=== PATIENT | female | born 1990 | race Caucasian/White ===

== ENCOUNTER 2018-12-16 15:30 | Outpatient (REF) | payer MEDICAID, SELFPAY ==
--- NOTE | 2018-12-16 15:15 | PAPFT_PTH ---
PATIENT: Chloe Quinones LOC: [facility] U#:[id number] AGE/SX: 28/F ROOM: RE12/16/[address]: Violette Garcia : 1990 BED: DIS: 12/16/2018 SPEC #: [id number] RECD: 12/16/18 18:34 STATUS: DANNIELLE REQ #: [id number] MARSHAL: 12/16/18 15:[address]: Violette Garcia DEPT: [facility] Cytology RECD BY: Jackie Dodson ENTERED: 12/16/18 18:34 SP TYPE: PAPFT OTHR DR: Jyotsna Montoya Tissues: 1 - CX/ENDOCX FOR PAP SMEARS Procedures: PAP THIN PREP/UVM Screening HPV DNA PROBE Comments: [id number]
== END 2018-12-16 15:50 ==
LOC: NCHCN 15:30
PROVIDERS: PCP Nurse Practitioner Family; Visit Provider Nurse Practitioner Family
DX: Z12.4 Encounter for screening for malignant neoplasm of cervix (principal); Z11.51 Encounter for screening for human papillomavirus (HPV); Z01.419 Encounter for gynecological examination (general) (routine) without abnormal findings
CPT/HCPCS: 88142; 87624

== ENCOUNTER 2019-03-25 13:13 | Outpatient (REF) | payer MEDICAID, SELFPAY | END 2019-03-25 13:33 | LOC: NCHCN 13:13 | PROVIDERS: PCP Nurse Practitioner Family; Visit Provider Nurse Practitioner Family | DX: J02.9 Acute pharyngitis, unspecified (principal) | CPT/HCPCS: 87081 ==

== ENCOUNTER 2020-02-09 19:01 | Outpatient (REF) | payer MEDICAID, SELFPAY ==
[2020-02-09 18:56] LABS: Abs Immature Grans 0.06 10^3/uL (0.0-0.06); Absolute Basophil Count 0.06 10^3/uL (0.0-0.2); Absolute Eosinophil Count 0.11 10^3/uL (0.0-0.7); Basophils % 0.5; Eosinophils % 0.9; HCT 39.4 % (36.0-46.0); HGB 12.8 g/dL (11.2-15.7); Immature Grans % 0.5; MCH 28.6 pg (27.0-33.0); MCHC 32.5 % (32.0-36.0); MCV 87.9 fL (80-95); MPV 10.1 fL (8.0-11.0); Monocytes % 7.9; Neutrophils % 64.2; Nucleated RBC 0 %; Platelet Count 336 10^3/uL (130-400); RBC 4.48 10^6/uL (3.93-5.22); RDW 13.3 % (11.7-14.6); RDW-SD 42.6 fL; WBC 12.67 10^3/uL (4.4-10.8)
[2020-02-09 19:02] LABS: Absolute Lymphocyte Count 3.29 10^3/uL (1.2-3.4); Absolute Neutrophil Count 8.13 10^3/uL (1.2-6.7)
[2020-02-09 19:25] LABS: TSH (W/Ref FT4) 1.01 uIU/mL (0.36-3.74)
[2020-02-13 10:12] LABS: COVID-19 RT-PCR Result NEGATIVE (Negative)
== END 2020-02-09 19:21 ==
LOC: NCHCN 19:01
PROVIDERS: PCP Nurse Practitioner Family; Visit Provider Nurse Practitioner Family
DX: J06.9 Acute upper respiratory infection, unspecified (principal); J02.9 Acute pharyngitis, unspecified
CPT/HCPCS: U0003; 84443; 85025

== ENCOUNTER 2020-05-17 16:05 | Emergency (ER) | payer MEDICAID, SELFPAY ==
[2020-05-17 16:27] VITALS: BP 113/68; PULSE 78; RESP 16; TEMP 36.5; O2SAT 98
--- NOTE | 2020-05-17 16:33 | W.ED.GENAD ---
Discharge Plan Disposition Patient Disposition: HOME Condition: Stable Discharge Details Clinical Impression: Thyroglossal duct cyst Primary Care Provider: Jyotsna Montoya ED Provider: Jarret Cazares Home Meds and New Rx's Prescriptions: New amoxicillin-pot clavulanate [Augmentin] 875-125 mg tablet 1 tab PO BID Qty: 20 RF: 0 Continued sertraline 100 mg tablet 100 mg PO DAILY RF: 0 Discharge Instructions Instructions: Thyroglossal Duct Cyst (ED) Additional Instructions: Augmentin as directed. [id number] Tylenol and/or Motrin as directed for discomfort. Cool and/or warm compresses every 2 hours for 20 minutes. Please watch for new or worsening symptoms and return to the ER for any concerns. I personally spoke with ENT, Dr. Magallon, at [facility]. He recommends getting you a referral to the ENT clinic, they should be contacting you in the next couple of days to help expedite outpatient ENT follow-up care. Discharge Data Discharge Date/Time-TO BE ENTERED AT DEPARTURE: 05/17/20 21:04 Medical Decision Making 29-year-old female with intermittent anterior neck pain-swelling that she describes as both anterior and external over the past year or so. Clinically she certainly has exterior swelling and a small amount of firmness but no pointing abscess, erythema, warmth, signs of Aj's angina. Her pharynx and mouth are unremarkable. No discomfort in the floor of her mouth. Difficult to say if there is nothing abnormal with her thyroid given the anterior neck swelling making the examination more difficult. Will obtain CBC, CMP, Monospot, rapid strep, more importantly CT of the neck with contrast. Laboratory values are unremarkable for obvious emergent process. Patient remains in no acute distress, using her cell phone without difficulty. Awaiting CT imaging of the neck. CT imaging reveals a likely thyroglossal duct cyst, possibly infected. Will discuss the case with ENT. Was able to push the images to [facility] and discussed the case with Dr. Magallon. He feels as though Augmentin therapy for the next 10 days is reasonable, [id number] Tylenol and/or Motrin, and referral to ENT clinic at [facility]. Patient given first dose of Augmentin here. Placed on the care management list to help expedite outpatient referral. Discussed findings with patient, my discussion with ENT at [facility], and disposition. She has no additional questions or concerns and is comfortable with this plan. Medical Records Medical records reviewed: Yes I reviewed the patient's medical records. Imaging Data Radiologic Study: Attestation: I personally reviewed and interpreted this imaging study as follows: Imaging: CT Scan Radiologist's impression: CT imaging of the neck read by radiology as there is a thick walled rim-enhancing septated fluid cystic structure measuring 1.8 x 1.3 x 1.7 L in the midline just below the left of the hyoid bone within the strap muscles. Does not exert mass-effect on the airway. No associated adenopathy. This probably most likely represents an infected thyroglossal duct cyst. Lab Data Lab results reviewed: Yes I reviewed the patient's lab results. Lab results narrative: 05/17/20 17:30 Pharynx Streptococcus Screen (KANG) - Pending Laboratory Tests Range/Units 05/17/20 05/17/20 05/17/20 17:00 17:00 17:00 WBC (4.4-10.8) 10^3/uL 10.83 H RBC (3.93-5.22) 10^6/uL 4.85 Hgb (11.2-15.7) g/dL 13.8 Hct (36.0-46.0) % 41.4 MCV (80-95) fL 85.4 MCH (27.0-33.0) pg 28.5 MCHC (32.0-36.0) % 33.3 RDW (11.7-14.6) % 12.6 Plt Count (130-400) 10^3/uL 369 MPV (8.0-11.0) fL 9.9 Immature Gran % 0.5 Neutrophils % 73.1 Lymphocytes % 17.5 Monocytes % 7.6 Eosinophils % 0.7 Basophils % 0.6 Nucleated RBC % % 0 Absolute Neutrophils (1.2-6.7) 10^3/uL 7.92 H Absolute Lymphocytes (1.2-3.4) 10^3/uL 1.90 Absolute Monocytes (0.1-0.8) 10^3/uL 0.82 H Absolute Eosinophils (0.0-0.7) 10^3/uL 0.08 Absolute Basophils (0.0-0.2) 10^3/uL 0.06 Sodium (136-145) mmol/L 138 Potassium (3.5-5.1) mmol/L 4.0 Chloride (98-107) mmol/L 103 Carbon Dioxide (21.0-32.0) mmol/L 24.4 Anion Gap (3-11) mmol/L 10.6 BUN (7-18) mg/dL 18 Creatinine (0.55-1.02) mg/dL 0.6 Estimated GFR/1.73 m2 (mL/min/1.73m2) >= 60.00 Glucose (74-106) mg/dL 90 Calcium (8.5-10.1) mg/dL 9.4 Total Bilirubin (0.2-1.0) mg/dL 0.3 AST (15-37) U/L 39 H ALT (14-59) U/L 79 H Alkaline Phosphatase (46-116) U/L 83 Total Protein (6.4-8.2) g/dL 8.5 H Albumin (3.4-5.0) g/dL 3.9 TSH (0.36-3.74) uIU/mL 1.63 Monoscreen (Negative) Negative HPI General Mode of arrival: ambulatory. Date/Time Provider Initiated Documentation: 05/17/20 16:30. Limitations to Documentation: no limitations. Information obtained by: patient. HPI Narrative: This is a 29-year-old female, x6 months, not breast-feeding, presenting to the ER today for anterior neck swelling over the past 3 days. Patient states that she has had this happen intermittently for at least 1 year. She states that the area is tight, swollen, and she feels as though she has both anterior and exterior moderate pain, worse with palpation or swallowing. She denies difficulty swallowing, speaking or breathing. Has taken pnee-kwu-qmecsgy medications with minimal relief. In the past she was seen by her primary care provider and [employer]; however, she denies any distinctive diagnosis ever being made. She denies any headache, fever, chest pain, shortness of breath, wheezing abdominal pain, nausea, vomiting, skin rash. She reports mild nasal drainage. Related Data Home Medications Medication Instructions Recorded Confirmed amoxicillin-pot clavulanate 1 tab PO BID #20 tab 05/17/20 [Augmentin] sertraline 100 mg PO DAILY 05/17/20 05/17/20 Previous Rx's Medication Instructions Recorded amoxicillin-pot clavulanate 1 tab PO BID #20 tab 05/17/20 [Augmentin] Allergies Allergy/AdvReac Type Severity Reaction Status Date / Time No Known Allergies Allergy Unverified 05/17/20 16:34 Review of Systems Constitutional Constitutional: Denies fatigue, Denies fever(s), Denies headache(s) and Denies weakness ENT Ears, Nose, Mouth, and Throat: Denies headache(s), Denies lip swelling, Denies nasal congestion, Reports neck pain, Reports sore throat, Reports throat swelling and Denies tongue swelling Cardiovascular Cardiovascular: Denies chest pain and Denies dyspnea Respiratory Respiratory: Denies cough, Denies dyspnea and Denies wheezing Gastrointestinal Gastrointestinal: Denies abdominal pain, Denies nausea and Denies vomiting Musculoskeletal Musculoskeletal: Denies back pain, Reports neck pain and Denies tingling Integumentary/Breasts Skin/Breast: Denies erythema and Denies rash Neurologic Neurologic: Denies headache(s), Denies tingling and Denies weakness Endocrine Endocrine: Denies fatigue Allergic/Immunologic Allergic/Immunologic: Denies urticaria, Denies lip swelling, Reports throat swelling, Denies tongue swelling and Denies wheezing [facility] Social History Smoking/Tobacco Use Status: Current every day Smoking risk assessment performed?: Yes Drug use: Never Do you feel safe in your relationship?: Yes Exam Const General: cooperative, healthy appearing, comfortable and no acute distress Orientation: alert, awake and oriented x3 HENMT Head: normal to inspection, normocephalic and atraumatic Ears: external ears normal, TM's normal bilaterally and EAC's normal General nose exam: external nose normal Face and sinus: normal facial exam Mouth: oral mucosae normal and moist mucous membranes Teeth and gingiva: dentition normal Throat: posterior oropharynx normal, uvula midline and no peritonsillar masses Eyes General: appearance normal, both eyes and all related structures Eyelids: eyelids normal Conjunctivae: conjunctivae normal Sclera: sclerae normal Neck Neck: full ROM, no lymphadenopathy, no meningeal signs, trachea midline, supple and tender Lymphatic: no lymphadenopathy noted Other: Diffuse anterior central swelling-fullness, mild discomfort to palpation. Minimal induration but no fluctuance or pointing abscess. Skin is intact. There is no warmth or erythema. Full range of motion. No signs of respiratory compromise. Resp Effort & Inspection: normal respiratory effort and able to speak in complete sentences Auscultation: clear to auscultation bilaterally Cardio Rate: regular rate Rhythm: regular rhythm GI Palpation: soft and nontender Skin General skin exam: no rashes or lesions noted Neuro General: patient alert, patient awake, moves all extremities and no focal motor deficits Cognition: normal cognition Speech: speech normal Gait: normal gait Motor: muscle tone normal throughout Sensory Exam: no sensory deficits noted Psych Appearance: grossly normal Mental Status: mental status grossly normal
--- NOTE | 2020-05-17 16:45 | DI.CT_ITS ---
EXAM: CT NECK W CLINICAL HISTORY: anterior swelling/pain TECHNIQUE: COMPARISON: No exams were available for comparison FINDINGS: CT examination cervical region was performed with intravenous infusion of 100 cc of Omnipaque 350. I mages obtained through the upper chest show unremarkable appearance of the lungs and mediastinal stru ctures. Tracheolaryngeal structures appear intact throughout. No cervical adenopathy. Vascular str uctures are unremarkable. Visualized portions of the brain are unremarkable. There is a thick-walled enhancing septated predominantly fluid attenuation mass seen anteriorly in th e midline just below the hyoid bone. Location is consistent with thyroglossal duct cyst, and the wal l thickening and enhancement would suggest infectious process. Please correlate clinically. IMPRESSION: Probable infected thyroglossal duct cyst as described above. Please correlate clinically. RADIATION DOSE DELIVERED: 343.03mGy.cm Total DLP
[2020-05-17 17:13] LABS: Abs Immature Grans 0.05 10^3/uL (0.0-0.06); Absolute Basophil Count 0.06 10^3/uL (0.0-0.2); Absolute Eosinophil Count 0.08 10^3/uL (0.0-0.7); Absolute Monocyte Count 0.82 10^3/uL (0.1-0.8); Absolute Neutrophil Count 7.92 10^3/uL (1.2-6.7); Basophils % 0.6; Eosinophils % 0.7; HCT 41.4 % (36.0-46.0); HGB 13.8 g/dL (11.2-15.7); Immature Grans % 0.5; Lymphocytes % 17.5; MCH 28.5 pg (27.0-33.0); MCHC 33.3 % (32.0-36.0); MCV 85.4 fL (80-95); MPV 9.9 fL (8.0-11.0); Monocytes % 7.6; Neutrophils % 73.1; Nucleated RBC 0 %; Platelet Count 369 10^3/uL (130-400); RBC 4.85 10^6/uL (3.93-5.22); RDW 12.6 % (11.7-14.6); RDW-SD 39.3 fL; WBC 10.83 10^3/uL (4.4-10.8)
[2020-05-17 17:16] LABS: Mono Screening Negative (Negative)
[2020-05-17 17:29] LABS: ALT 79 U/L (14-59); AST 39 U/L (15-37); Albumin 3.9 g/dL (3.4-5.0); Alkaline Phosphatase 83 U/L (46-116); Anion Gap 10.6 mmol/L (3-11); BUN 18 mg/dL (7-18); Bilirubin, Total 0.3 mg/dL (0.2-1.0); CO2 24.4 mmol/L (21.0-32.0); CREATININE 0.6 mg/dL (0.55-1.02); Calcium 9.4 mg/dL (8.5-10.1); Chloride 103 mmol/L (98-107); Glucose 90 mg/dL (74-106); Sodium 138 mmol/L (136-145); TSH (W/Ref FT4) 1.63 uIU/mL (0.36-3.74); Total Protein 8.5 g/dL (6.4-8.2)
[2020-05-17] MEDS: Omnipaque 350 MG/ML 100 ML BTL IJ (19:27)
[2020-05-17] MEDS: Normal Saline - Diluent 50 ML VIAL IV (19:28)
--- NOTE | 2020-05-17 19:41 | DI.VRAD_ITS ---
PROCEDURE INFORMATION: Exam: CT Neck With Contrast Exam date and time: 05/17/2020 7:20 PM Age: 29 years old Clinical indication: Neck pain; Patient HX: Anterior swelling/pain TECHNIQUE: Imaging protocol: Computed tomography images of the neck with intravenous contrast. Radiation optimization: All CT scans at this facility use at least one of these dose optimization techniques: automated exposure control; mA and/or kV adjustment per patient size (includes targeted exams where dose is matched to clinical indication); or iterative reconstruction. Contrast material: OMNIPAQUE 350; Contrast volume: 100 ml; Contrast route: INTRAVENOUS (IV); COMPARISON: No relevant prior studies available. FINDINGS: Nasopharynx: Unremarkable. Oropharynx: Unremarkable. No significant tonsillar enlargement. Hypopharynx: Unremarkable. Larynx: Unremarkable. Normal epiglottis. Retropharyngeal space: Unremarkable. Submandibular/Parotid glands: Normal. Glands are normal in size. Thyroid: Normal. No enlarged or calcified nodules. Lymph nodes: No adenopathy. Trachea: Visualized trachea is unremarkable. Lungs: Unremarkable as visualized. Bones/joints: Unremarkable. No acute fracture. Soft tissues: There is a thick walled rim enhancing septated fluid cystic structure measuring 1.8 x 1.3 x 1.8 cm in the midline just below the level of the hyoid bone within the strap muscles. It does not exert mass effect on the airway. IMPRESSION: There is a thick walled rim enhancing septated fluid cystic structure measuring 1.8 x 1.3 x 1.8 cm in the midline just below the level of the hyoid bone within the strap muscles. It does not exert mass effect on the airway. No associated adenopathy. This probably most likely represents an infected thyroglossal duct cyst. Dictated and Authenticated by: Oscar Schmidt MD. Ordering:LOUIE Wheat MD
[2020-05-17 20:12] VITALS: BP 123/76; PULSE 73; RESP 15; O2SAT 98
[2020-05-17] MEDS: Amoxicillin 875/Clav. 125 TAB PO (21:02)
--- NOTE | 2020-05-17 21:14 | NUR.NOTE ---
Referral to Care Management to f/u with ENT at [facility].Nursing Note:
--- NOTE | 2020-05-19 17:44 | CMPROGNOTE_ITS ---
- If Service Date Differs Date of service: 05/19/20 Time of Service: 17:44 Care Management Progress Note Chloe is seen in the ED for a thyroglossal duct cyst. At the request of ED provider, CM coordinates a referral to [facility] otolaryngology.
== END 2020-05-17 21:04 | disposition home or self-care (01) ==
PROVIDERS: Emergency Provider Physician Assistant; PCP Nurse Practitioner Family
DX: Q89.2 Congenital malformations of other endocrine glands (principal)
CPT/HCPCS: 36415; 70491; 80053; 87880; 99285; 84443; 85025; 86308; 87081; 99284; J3490

== ENCOUNTER 2020-07-19 08:18 | Outpatient (CLI) | payer MEDICAID, SELFPAY ==
[2020-07-19 11:44] LABS: Source Nasal/Nares
[2020-07-19 21:13] LABS: COVID-19 PCR Negative (Negative)
== END 2020-07-19 08:19 | disposition home or self-care (01) ==
PROVIDERS: PCP Nurse Practitioner Family; Visit Provider Otolaryngology
DX: Z20.822 Contact with and (suspected) exposure to COVID-19 (principal); Z01.818 Encounter for other preprocedural examination
CPT/HCPCS: 87635

== ENCOUNTER 2023-09-20 16:43 | Outpatient (REF) | payer SELFPAY ==
--- NOTE | 2023-09-20 11:45 | PAPFT_PTH ---
PATIENT: Chloe Quinones LOC: [facility] U#:[id number] AGE/SX: 32/F ROOM: RE09/20/[address]: Rachel Rockwell : 1990 BED: DIS: 09/20/2023 SPEC #: [id number] RECD: 09/20/23 17:54 STATUS: DANNIELLE REQ #: [id number] MARSHAL: 09/20/23 11:[address]: Rachel Rockwell DEPT: [facility] Cytology RECD BY: Jackie Dodson ENTERED: 09/20/23 17:54 SP TYPE: PAPFT OTHR DR: Jyotsna Montoya Tissues: 1 - CX/ENDOCX FOR PAP SMEARS Procedures: PAP THIN PREP/UVM Screening HPV DNA PROBE Comments: [id number] (HPV 16 & 18/45)
--- OUTSIDE RECORDS SUMMARY | 2023-09-20 16:51 | XMS_ITS | Encounter Summary ---
Author Organization [facility] [place] [address] Care Team Providers Care Butcher Apprentice Name Role Phone John Barba MD Primary Care Provider Encounter Details Date Type Department Care Team (Late st Contact Info) Description 07/15/2020 [place] [phone] Marisol Joseph Social History Tobacco Use Types Packs/Day Years Used Date Smoking Tobacco: Former Cigarettes Q uit: 2020 Smokeless Tobacco: Never Sex and Gender Information Value Date Recorded Sex Assigned at Not on file Gender Identity Not on file Sexual Orientation Not on file documented as of this encounter Miscellaneous Notes * Telephone Encounter - Marisol Joseph - 07/15/2020 3:29 PM EDT Good afternoon: Telephone call placed to schedule covid 19 testing with patient. Ordering provider: Dr. Judy Esquivel Testing Facility: [place], [place] FAX: [phone] Date of Testin/16 or 07/19 Time of Testing: TBD Symptoms: Pre Op Is this the first test for Covid 19 No If no, please list date of previous test, result, and type of test (Molecular, Antigen, Antibody orunknown): November, [facility] - negative Resides in congregate care setting No Employee or Household Member of Employee No Healthcare Worker No documented in this encounter Plan of Treatment Not on file documented as of this encounter Visit Diagnoses Diagnosis COVID-19 ruled out documented in this encounter Care Teams Butcher Apprentice Relationship Specialty Start Date End Date John Barba MD [address] [id number] PCP - General 06/24/18 documented as of this encounter
--- OUTSIDE RECORDS SUMMARY | 2023-09-20 16:51 | XMS_ITS | Encounter Summary ---
Author Organization [facility] Address [facility] [place] [address] Care Team Providers Care Brisket Puller Name Role Phone John Barba MD Primary Care Provider [phone] Reason for Visit * Consultation (ANITHA) - Closed Specialty Diagnoses / Procedures Referred By Vera martinez Referred To Contact Otolaryngology Diagnoses infected thyroglossal duct cyst Reji Cazares PA [address] [place] [address] [place] [address] [facility] [address] [place] [phone] Referral ID Status Reason Start Date Expiration Date Visits Re quested Visits Authorized [id number] Closed 05/20/2020 05/20/2021 1 1 Encounter Details Date Type Department Care Team (Late st Contact Info) Description 06/07/2020 4:00 PM EDT Office [place] [phone] Judy Esquivel MD [facility] OT[facility]ARY[facility]OLOGY [place], [place] [id number] Thyroglossal duct cyst Social History Tobacco Use Types Packs/Day Years Used Date Smoking Tobacco: Former Cigarettes Q uit: 2020 Smokeless Tobacco: Never Sex and Gender Information Value Date Recorded Sex Assigned at Not on file Gender Identity Not on file Sexual Orientation Not on file documented as of this encounter Last Filed Vital Signs Vital Sign Reading Time Taken Comments Blood Pressure - - Pulse - - Temperature - - Respiratory Rate - - Oxygen Saturation - - Inhaled Oxygen Concentration - - Weight 61.8 kg (136 lb 4.8 oz) 06/07/2020 4:02 P M EDT Height 149.9 cm (4' 11) 06/07/2020 4:02 PM EDT Body Mass Index 27.53 06/07/2020 4:02 PM EDT documented in this encounter Progress Notes * Judy Esquivel MD - 06/07/2020 4:00 PM EDT Images from the original note were not included. [facility] Otolaryngology - Head and Neck Surgery Judy Esquivel MD 06/07/20 4:22 PM [place] [id number] Office Patient Name: Chloe Quinones Date of : 1990 PCP: John Barba MD Chief Complaint/ History of Present Illness: Chloe Quinones is a 29 y.o. year old who was seen today at the request of Reji Cazares inconsultation for thyroglossal duct cyst. Patient had noted a rather acute swelling in the midline of her neck anteriorly. This first occurred when she was with her son who is now 6 months old. At first it was attributed to the increased hormones during her . Swelling did improve but then she has had 2 more occurrence of this. Most recently was about a month ago. This did improvewith antibiotics. When the area is not actively swollen she states that she can still feel a small lump in the area. But no pain. It does bother her when it is swollen and she is swallowing. No voice changes. No dysphagia. No radiation therapy to the neck. Otherwise doing okay. 10 point Review of Systems was normal except for pertinent positives and negatives included in the History of Present Illness. Past Medical and Surgical History There is no problem list on file for this patient. Current Outpatient Medications on File Prior to Visit Medication Sig Dispense Refill ??? sertraline (ZOLOFT) 100 mg Tablet TAKE ONE TABLET BY MOUTH EVERY DAY No current facility-administered medications on file prior to visit. Allergies: Patient has no known allergies. Surgical History: No past surgical history on file. Family and Social History Family History: No family history on file. Social History: Lives [place] [facility] [id number] Social History Socioeconomic History ??? Marital status: Spouse name: Not on file ??? Number of children: Not on file ??? Years of education: Not on file ??? Highest education level: Not on file Occupational History ??? Not on file Tobacco Use ??? Smoking status: Former Smoker Quit date: 2020 Years since quittin.2 ??? Smokeless tobacco: Never Used Substance and Sexual Activity ??? Alcohol use: Not on file ??? Drug use: Not on file ??? Sexual activity: Not on file Other Topics Concern ??? Not on file Social History Narrative ??? Not on file Social Determinants of Health Financial Resource Strain: ??? Difficulty of Paying Living Expenses: Food Insecurity: ??? Worried About Running Out of Food in the Last Year: ??? Ran Out of Food in the Last Year: Transportation Needs: ??? Lack of Transportation (Medical): ??? Lack of Transportation (Non-Medical): Physical Activity: ??? Days of Exercise per Week: ??? Minutes of Exercise per Session: Stress: ??? Feeling of Stress : Social Connections: ??? Frequency of Communication with Friends and Family: ??? Frequency of Social Gatherings with Friends and Family: ??? Attends Scientology Services: ??? Active Member of Clubs or Organizations: ??? Attends Club or Organization Meetings: ??? Marital Status: Intimate Partner Violence: ??? Fear of Current or Ex-Partner: ??? Emotionally Abused: ??? Physically Abused: ??? Sexually Abused: Physical Exam Temperature: Heart Rate: Blood Pressure: Respiratory Rate: SpO2: General: Awake, alert, and oriented to person, place and time. No acute distress. Head and Face: Head is normocephalic, atraumatic. Facial resting tone symmetric. Eyes: Conjugate gaze, ocular motility intact bilaterally. PERRL. Neurologic: Cranial Nerves II-XII grossly intact and symmetric. Ears: External ear and ear canal are without deformity. Hearing is grossly normal. Nose: External nose is midline without deformity or lesion. Anterior rhinoscopy reveals a straight septum, healthy mucosa, turbinates normal in size. Oral: There are no visible or palpable buccal, gingival, lingual, or palatal lesions. The floor of mouth is soft and flat. Oropharynx: Symmetric without tonsillar pathology. No other concerning lesions or masses Larynx: No stridor, no hoarseness. External laryngeal structures normal to palpation. Face and sinuses are non tender. Salivary glands are soft, non tender, without palpable masses. No temporomandibular joint grinding or locking. Neck: Just over the hyoid bone is a small, mobile mass measuring about 1 x 1-1/2 cm in size. No overlying induration or erythema was noted. Midline trachea. Thyroid normal in size, non tender, no palpable mass. Lymphatic: no palpable cervical lymphadenopathy. Pulmonary: Breathing comfortably. Symmetric chest expansion without use of accessory muscles or retraction. Skin: Good skin turgor, no pallor, no icterus. Extremities: No gross deformities, no peripheral edema. Labs and Imaging Significant lab values are as follows: I reviewed the following imaging studies: Procedures ASSESSMENT & RECOMMENDATIONS Chloe Quinones is a 29 y.o. with thyroglossal duct cyst. We reviewed how these form and indications for excision, as she has had 3 episodes of infection we did recommend excision today. Recommendations: 1. Risks and benefits of Ludivina procedure were discussed with the patient. She understands and would like to proceed. Consent was obtained today. We will schedule at her convenience. She was advised that if she does notice a return of swelling to the let us know as soon as possible so we can put her on antibiotics to avoid surgery during an acute period of inflammation and infection. 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
--- OUTSIDE RECORDS SUMMARY | 2023-09-20 16:51 | XMS_ITS | Encounter Summary ---
Author Organization Formerly [facility] [place] [address] Care Team Providers Care School Custodian Name Role Phone John Barba MD Primary Care Provider [phone] Encounter Details Date Type Department Care Team (Late st Contact Info) Description 05/17/2020 Telephone [place] [id number] Shan Cook MD [facility] [place] [address] Social History Tobacco Use Types Packs/Day Years Used Date Smoking Tobacco: Never Assessed Sex and Gender Information Value Date Recorded Sex Assigned at Not on file Gender Identity Not on file Sexual Orientation Not on file documented as of this encounter Miscellaneous Notes * Telephone Encounter - Shan Cook MD - 05/17/2020 8:49 PM EDT I was contacted through the transfer center regarding this patient who presented with waxing and waning anterior neck swelling and pain over the past year. She had previously been seen for this issueby her PCP who told her that it was related with her ~6 months ago. She presented to the [facility] ED with these symptoms and a CT was done that demonstrated a likely thryoglossal duct cyst withadjacent fat stranding. No reported airway or swallowing symptoms. The ED provider suggested a course of antibiotics and referral to ENT. I stated that this was a good plan and recommended 10-14 daysof augmentin as an antibiotic of choice. Shan Cook MD PGY-3 [facility] [place] Pager: [phone] documented in this encounter Plan of Treatment Not on file documented as of this encounter Visit Diagnoses Not on filedocumented in this encounter Care Teams School Custodian Relationship Specialty Start Date End Date John Barba MD [address] [place] [address] PCP - General 06/24/18 documented as of this encounter
--- OUTSIDE RECORDS SUMMARY | 2023-09-20 16:51 | XMS_ITS | Clinical Summary ---
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 Social History Tobacco Use Types Packs/Day Years Used Date Smoking Tobacco: Former Cigarettes Q uit: 2020 Smokeless Tobacco: Never Alcohol Use Standard Drinks/Week Comments Yes 0 (1 standard drink = 0.6 oz pur e alcohol) Monthlhy Sex and Gender Information Value Date Recorded Sex Assigned at Not on file Gender Identity Not on file Sexual Orientation Not on file Last Filed Vital Signs Vital Sign Reading Time Taken Comments Blood Pressure 107/66 07/21/2020 1:15 PM EDT Pulse 67 07/21/2020 1:15 PM EDT Temperature 36.1 ??C (97 ??F) 07/21/2020 12:32 PM EDT Respiratory Rate 18 07/21/2020 1:15 PM EDT Oxygen Saturation 95% 07/21/2020 1:15 PM EDT Inhaled Oxygen Concentration - - Weight 61.2 kg (135 lb) 07/28/2020 1:36 PM EDT Height 149.9 cm (4' 11) 07/28/2020 1:36 PM EDT Body Mass Index 27.27 07/28/2020 1:36 PM EDT Plan of Treatment Health Maintenance Due Date Last Done Comments HIV screen 2010 Hepatitis C Screening 2010 Hepatitis B vaccine (0-59 yrs) (1) 10/28/2011 Tdap adult 10/28/2011 Tetanus vaccine 10/28/2011 HPV test 2022 PAP Smear 2022 Covid-19 Vaccine ( - season) 2022 Influenza (Flu) vaccine (1 o f 1 - Influenza standard series) 11/04/2023 Care Teams Incident Response Coordinator Relationship Specialty Start Date End Date John Barba MD [address] [place] [address] PCP - General 06/24/18
--- OUTSIDE RECORDS SUMMARY | 2023-09-20 16:51 | XMS_ITS | Encounter Summary ---
[place] [address] Care Team Providers Care Development Planner Name Role Phone John Barba MD Primary Care Provider [phone] Reason for Visit * Auth/Cert Specialty Diagnoses / Procedures Referred By Vera martinez Referred To Contact Diagnoses Thyroglossal duct cyst thyroglossal duct cyst Procedures PRO EXCIS THYROID DUCT CYST/SINUS EXCISION THYROGLOSSAL DUCT CYST (WRVU 6.16) Referral ID Status Reason Start Date Expiration Date Visits Re quested Visits Authorized [id number] 1 1 Encounter Details Date Type Department Care Team (Late st Contact Info) Description 07/21/2020 11:30 AM EDT - 07/21/2020 1:20 PM EDT Surgery [place] [phone] Judy Esquivel MD [facility] [place] [address] EXCISION THYROGLOSSAL DUCT CYST (WRVU 6.16) Social History Tobacco Use Types Packs/Day Years [...] - - Weight 61.2 kg (135 lb) 07/21/2020 10:13 AM EDT Height 149.9 cm (4' 11) 07/21/2020 10:13 AM EDT Body Mass Index 27.27 07/21/2020 10:13 AM EDT documented in this encounter Discharge Instructions * Discharge Instructions* Tish Brice RN - 07/21/2020 10:04 AM EDT At 1015 you received 1000 mg of acetaminophen- Your next dose should not be taken before 8 hours have passed. Next dose not before-6:15pm You should not take more than a total of 3000 mg of acetaminophen in a 24 hour period. * Patient Instructions* Judy Esquivel MD - 07/21/2020 12:22 PM EDT Go home and rest. Avoid heavy lifting (>30 lbs), straining, or other strenuous activity for 1 week. Change the gauze dressing as needed. Mild oozing may occur over the next 24 hours. Ok to shower and get the incision wet in 24 hours. The steri strips will fall off on their own. Some mild swelling along the incision is normal, but notify Dr. Esquivel's office if it feels like it's occurring rapidly, or if you feel like a fluid collection is building. Take tylenol and ibuprofen for pain. Call Dr. Esquivel's office with any further questions. documented in this encounter Medications at Time of Discharge Medication Sig Dispensed Refills Start Date End Date sertraline (ZOLOFT) 100 mg Tablet TAKE ONE TABLET BY MOUTH EVERY DAY 05/26/2020 documented as of this encounter Progress Notes * Marisa Merritt RN - 07/21/2020 1:29 PM EDT Discharge instructions and medications reviewed with patient and , Jason. All questions answered and written copy sent home with patient. Patient ambulated to car for discharge accompanied by [facility] staff member. * Valentina Duggan RN - 07/20/2020 3:10 PM EDT During this call the patient was questioned regarding travel outside of the [place] states, fever, cough, SOB or other illness in the last 14 days. Patient also questioned regarding any exposure to a COVID positive person, a person awaiting results from testing or a person in quarantine. Patient also denies attending a gathering of 50 people indoors or 100 people outdoors where a mask was unable to be worn. Patient denies any positive responses to the above questions for themselves or their escort for theday of procedure. Patient informed of procedure to be followed upon arrival to the [facility]. That being, COVID questions will be asked again, temperature will be taken, patient and caregiver/drop hammer pile driver operator will be given a mask to wear the entire time they are in the [facility] building. COVID test completed:07/19/20 Result of test:Pending Action taken: * Ana María Barrett RN - 07/19/2020 4:38 PM EDT During this call the patient was questioned regarding travel outside of [place] states, fever, cough, SOB or other illness in the last 14 days. Patient also questioned regarding any exposure to aCOVID positive person, a person awaiting results from testing or a person in quarantine.Patient also denies attending a gathering of 50 people indoors or 100 people outdoors where a mask was unable to be worn.Patient denies any positive responses to the above questions for themselves or their escort for the day of procedure. Patient informed of procedure to be followed upon arrival to the [facility]. That being, COVID questions will be asked again, temperature will be taken, patient and caregiver/drop hammer pile driver operator will be given a mask to wear the entire time they are in the [facility] building. documented in this encounter H&P Notes * Judy Esquivel MD - 07/21/2020 10:28 AM EDT INTERVAL H&P S: Chloe Quinones's condition unchanged since H&P originally performed Denies any new ED visits, hospitalizations, trauma, or new events. Has been overall doing well. O: Patient Vitals for the past 24 hrs: BP Temp Temp src Pulse Resp SpO2 Height Weight 07/21/20 1017 110/70 36.6 ??C (97.9 ??F) Temporal 63 16 98 % -- -- 07/21/20 1013 -- -- -- -- -- -- 149.9 cm (4' 11) 61.2 kg (135 lb) 07/21/20 1006 -- -- -- -- -- -- 149.9 cm (4' 11) 61.2 kg (135 lb) NAD, A&Ox3 Non-labored respirations, clear to auscultation bilaterally Regular rate and rhythm, no murmur on auscultation Site marked AP: 29 y.o. female with thyroglossal duct cyst. - After extensive discussion of the risks, benefits, and alteratives of surgical intervention, the patient consented to proceed with surgery. - IV antibiotics ordered - Proceed to OR for: Procedure(s): EXCISION THYROGLOSSAL DUCT CYST (WRVU 6.16) Judy Esquivel MD documented in this encounter Miscellaneous Notes * Op Note - Judy Esquivel MD - 07/21/2020 11:15 AM EDT [facility] [place] Patient Name: Chloe Quinones : [id number] MR#: [id number] Case Date: 07/21/2020 Surgeon: Surgeon(s) and Role: * Judy Esquivel MD - Primary Preoperative diagnosis: thyroglossal duct cyst Postoperative diagnosis: thyroglossal duct cyst Procedure(s) (LRB): EXCISION THYROGLOSSAL DUCT CYST (WRVU 6.16) (N/A) Anesthesia: General Estimated Blood Loss: * No values recorded between 07/21/2020 11:15 AM and 07/21/2020 12:15 PM * Specimens removed during surgery: Order Name Source Comment Collection Info Order Time SPECIMEN TO PATHOLOGY thyroglossal duct cyst 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 Condition: doing well without problems (Please see the Surgical Encounter Summary for any Implant and Specimen details pertinent to this patient.) HPI/Surgical Indications: 29 y/o female with thyroglossal duct cyst, multiple prior infections Procedure Description: After informed consent was obtained, patient was brought to the operating room and placed supine on the operating room table. A time-out was performed and confirmed amongst theoperating room staff. General anesthesia was administered. Patient was prepped and draped in standard sterile fashion. An incision was marked in a skin crease just inferior to the palpable mass, this was just below thelevel of the hyoid bone. This was injected with 1% lidocaine with 1:[id number] epinephrine. Incision was made and subplatysmal flap was raised superiorly. The mass was noted just inferior and to the leftof the central portion of the hyoid bone. Scar tissue and adherent strap muscles were divided and dissected off the mass. The mass was noted to be essentially adherent to the hyoid bone. The supra and infra hyoid strap muscles were dissected off the mid portion of the hyoid bone, and the hyoid bonewas removed in continuity with the mass. Valsalva was performed, any areas of bleeding were controlled with bipolar cautery. The wound bed was copiously irrigated with normal saline. Strap muscles were reapproximated, and the wound was closed with 3-0 vicryl in the platysmal and deep dermal layers,and 5-0 monocryl in subcuticular fashion for the skin. Steri streps were applied and patient awoke in stable condition, extubated. Infection Bundle used? N/A Attestation: Case Date: 07/21/2020 I performed this procedure without the involvement of a resident. Judy Esquivel MD 07/21/2020 documented in this encounter Plan of Treatment Not on file documented as of this encounter Procedures Procedure Name Priority Date/Time Associated Diagnosis Comments SURGICAL PATHOLOGY REPORT Routine 07/21/2020 11:52 AM EDT SPECIMEN TO PATHOLOGY Routine 07/21/2020 11:52 AM EDT EXCISION THYROGLOSSAL DUCT CYST (WRVU 6.16) 07/21/2020 10:52 AM EDT Thyroglossal duct cyst EXCISION THYROGLOSSAL DUCT CYST Routine 07/21/2020 10:02 AM EDT Thyroglossal duct cyst POCT URINE Routine 07/21/2020 10:00 AM EDT documented in this encounter Results * Surgical Pathology Report (07/21/2020 11:52 AM EDT) Surgical Pathology Report [id number] ? Location: [facility] The signing pathologist has (i) examined the relevant preparation(s) for the specimen(s) and (ii) rendered or confirmed the diagnosis(es). . ?Surgical Pathology DIAGNOSIS Thyroglossal duct cyst and hyoid bone, excision - - Squamous-lined cyst and adjacent hematopoietic bone, compatible with thyroglossal duct cyst and hyoid. Electronically signed by: ?Buffy Cam DO Verified: ??08/03/2020 12:15 ??Pathologist Performed at: ??-[facility] Dept. [place]ology, [place], [place] SPECIMEN(S) SUBMITTED A - Thyroglossal duct cyst and hyoid bone, excision (1) CLINICAL INFORMATION Thyroglossal duct cyst SPECIMEN PROCESSING A - Labeled/Fixative: Thyroglossal duct cyst and hyoid bone, formalin. Quantity/Size: Single, 1.8 x 1.5 x 1.1 cm. Tissue Description: Irregular portion of marcum-pink tissue comprised of portion of bone 1.3 x 1.1 x 0.3 cm with adjacent fibromembranous tissue. Edges of the bone are marked with blue ink. Soft tissue surfaces are marked black. Sections/Processin g: Blocks submitted for decalcification: A1-A3. Entirely submitted in 3 cassettes labeled A1-A3. ??pps [facility] 07/21/2020 11:5 2 AM EDT Judy Esquivel MD PATHOLOGY/CYTOLOGY O CELY Performing Organization Address City/[facility]/ZIP Co de Phone Number [facility] [place] [address] * Specimen to Pathology (07/21/2020 11:52 AM EDT) AP Specimen 07/21/2020 11:5 2 AM EDT 07/21/2020 11:52 AM EDT Narrative [facility] - 07/21/2020 11:52 AM EDT Specimen requisition ordered. ??Separate Pathology report to follow Judy Esquivel MD PATHOLOGY/CYTOLOGY O CELY Performing Organization Address City/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 documented in this encounter Administered Medications Inactive Administered Medications - up to 3 most recent administrations Medication Order MAR Action Action Date Dose Rate Site acetaminophen (Tylenol) tablet 1,000 mg 1,000 mg, Oral, ONCE, 1 dose, On Sun07/21/20 at 1030, Administer with SIP of H2O only., Day of Surgery (Day of Procedure), Routine Given 07/21/2020 10:12 AM EDT 1,000 mg fentaNYL (pf) (50 mcg/mL) multi-dose injection 25-50 mcg 25-50 mcg, Intravenous, EVERY 5 MIN PRN, Starting on Sun07/21/20 at 1308, Until Sun07/21/20 at 1340, Pain, Give 25 mcg every 5 minutes PRN for mild to moderate pain (1-5) Give 50 mcg every 5 minutes PRN for moderate to severe pain (6-10). Hold for respiratory rate less than 10 per minute. Maximum dose 200 mcg over one hour, including OR administration. If ordered with HYDROmorphone or morphine, give HYDROmorphone or morphine first and use fentaNYL for breakthrough pain., PACU Recovery, Routine Given 07/21/2020 1:13 PM EDT 50 mcg lactated ringers infusion 1,000 mL, at 100 mL/hr, Intravenous, CONTINUOUS, Starting on Sun07/21/20 at 1030, Until Sun07/21/20 at 1340, Day of Surgery (Day of Procedure) Restarted 07/21/2020 10:53 AM EDT New Bag 07/21/2020 10:30 AM EDT 1,000 mLs 100 mL/hr lidocaine-EPINEPHrine (1% - 1:100,000) injection ONCE PRN, Starting on Sun07/21/20 at 1108, Until Sun07/21/20 at 1540, Intra-Operative (Intra-Procedure), Routine Given 07/21/2020 11:08 AM EDT 6 mLs 19- Surgical Site documented in this encounter Active and Recently Administered Medications Times are shown in EDT. Scheduled Medication Order 07/19/2020 07/20/2020 07/21/2020 acetaminophen (Tylenol) tablet 1,000 mg (COMPLETED) 1,000 mg, Oral, ONCE, 1 dose, On Sun07/21/20 at 1030, Administer with SIP of H2O only., Day of Surgery (Day of Procedure), Routine 1012 (Given - Provid er: Tish Brice RN) ceFAZolin (Ancef) 2 g in dextrose 5% 100 mL infusion (COMPLETED) 2 g, Intravenous, ONCE, 1 dose, On Sun07/21/20 at 1045, Administer over 30 Minutes, Indication for (Active or Suspected): Prophylaxis 1102 (Given - Provid er: Padmini Ramirez CRNA) Continuous Medication Order 07/19/2020 07/20/2020 07/21/2020 lactated ringers infusion (CANCELED) 1,000 mL, at 100 mL/hr, Intravenous, CONTINUOUS, Starting on Sun07/21/20 at 1030, Until Sun07/21/20 at 1340, Day of Surgery (Day of Procedure) 1030 (New Bag - Prov ider: Tish Brice RN)1052 (Paused - Provider: Padmini Ramirez CRNA - Comment: Switch to gravity)1053 (Restarted - Provider: Padmini Ramirez CRNA)1218 (Anesthesia Volume Adjustment - Provider: Joseph Reyes MD) PRN Medication Order 07/19/2020 07/20/2020 07/21/2020 fentaNYL (pf) (50 mcg/mL) multi-dose injection 25-50 mcg (CANCELED) 25-50 mcg, Intravenous, EVERY 5 MIN PRN, Starting on Sun07/21/20 at 1308, Until Sun07/21/20 at 1340, Pain, Give 25 mcg every 5 minutes PRN for mild to moderate pain (1-5) Give 50 mcg every 5 minutes PRN for moderate to severe pain (6-10). Hold for respiratory rate less than 10 per minute. Maximum dose 200 mcg over one hour, including OR administration. If ordered with HYDROmorphone or morphine, give HYDROmorphone or morphine first and use fentaNYL for breakthrough pain., PACU Recovery, Routine 1313 (Given - Provid er: Marisa Merritt RN) lidocaine-EPINEPHrine (1% - 1:100,000) injection (CANCELED) ONCE PRN, Starting on Sun07/21/20 at 1108, Until Sun07/21/20 at 1540, Intra-Operative (Intra-Procedure), Routine 1108 (Given - Provid er: Judy Esquivel MD) documented in this encounter Care Teams Development Planner Relationship Specialty Start Date End Date John Barba MD [address] [place] [id number] PCP - General 06/24/18 documented as of this encounter
--- OUTSIDE RECORDS SUMMARY | 2023-09-20 16:51 | XMS_ITS | Encounter Summary ---
[place] [address] Care Team Providers Care Maintenance Mgr Name Role Phone John Barba MD Primary Care Provider [phone] Encounter Details Date Type Department Care Team (Late st Contact Info) Description 07/16/2020 [place] [address] Ana María Moffett, RN COVID-19 ruled out Social History Tobacco Use Types Packs/Day Years Used Date Smoking Tobacco: Former Cigarettes Q uit: 2020 Smokeless Tobacco: Never Sex and Gender Information Value Date Recorded Sex Assigned at Not on file Gender Identity Not on file Sexual Orientation Not on file documented as of this encounter Plan of Treatment Not on file documented as of this encounter Visit Diagnoses Diagnosis COVID-19 ruled out documented in this encounter Care Teams Maintenance Mgr Relationship Specialty Start Date End Date John Barba MD [address] [place] [id number] PCP - General 06/24/18 documented as of this encounter
--- OUTSIDE RECORDS SUMMARY | 2023-09-20 16:51 | XMS_ITS | Encounter Summary ---
[place] [address] Care Team Providers Care Roll Out Manager Name Role Phone John Barba MD Primary Care Provider [phone] Reason for Visit * Auth/Cert Specialty Diagnoses / Procedures Referred By Vera martinez Referred To Contact Diagnoses Thyroglossal duct cyst thyroglossal duct cyst Procedures PRO EXCIS THYROID DUCT CYST/SINUS EXCISION THYROGLOSSAL DUCT CYST (WRVU 6.16) Referral ID Status Reason Start Date Expiration Date Visits Re quested Visits Authorized [id number] 1 1 Encounter Details Date Type Department Care Team (Late st Contact Info) Description 07/21/2020 10:53 AM EDT Anesthesia Event [place] [address] Joseph Reyes MD [facility] [place] [address] Annie Fairbanks MD [facility] [place] [address] Anesthesia Record Procedure Summary Procedure Name Responsible Anesthesiologist Anesthesia Start Time Anesthesia Stop Time EXCISION THYROGLOSSAL DUCT CYST (WRVU 6.16) (Neck) Joseph Reyes MD 07/21/20 1053 07/21/20 1233 Events Date Time Event Comment 07/21/2020 1031 1053 AN Verify 1053 Start 1053 An Start Data 1058 An Induction 1059 An Intubation 1102 Anesthesia Ready 1107 Quick Note Local injection by med student, under direct supervision of surgeon. 1115 Procedure Start 1115 Skin Incision 1225 Extubation/LMA Out 1229 an stop data 1233 Recovery or ICU Handoff Yesenia ent care was transferred to the destination unit staff after review of the patient's medical history, current anesthetic/surgical status and plan, according to the Provider Handoff Checklist. 1233 Stop Meds Name Total Midazolam 2 mg fentaNYL 100 mcg IV Lidocaine 40 mg Propofol 250 mg Propofol INF 162.18 mg Dexmedetomidine 4 mcg Dexamethasone 8 mg Ondansetron 8 mg Ketorolac 30 mg Succinylcholine 100 mg PHENYLephrine 120 mcg ceFAZolin (Ancef) 2 g in dextrose 5% 100 mL infusion 2 g lactated ringers infusion 900 mL * Agents Name O2 Air N2O Sevoflurane (et) * Blood No blood administrations on file. Lines, Drains, and Airways Type Details Placement Removal (RETIRED) Peripheral IV Line - Single Lumen 07/21/20; 1026; median cubital vein (antecubital fossa), left; [id number] catheter system; Anatomical Landmarks; 20 gauge; distraction; 07/21/20; 1339 07/21/20 1026 by Tish Brice RN 07/21/20 1339 by Marisa Merritt RN ETT Mask Ventilation: Ea sy (1); ETT Type: Cuffed, Oral; ETT Size: 6.5 mm; Mac Blade: 3; Notes: Asleep, Pre-O2; Attempts: 1; Laryngoscopy Grade: 1; ETT Placement Verified By: Capnometry, Visual; Secured at Teeth: 20 cm; Inserted by: MARGIE Yuan; Removal Date: 07/21/20; Removal Time: 1225 07/21/20 1059 by Padmini Ramirez CRNA 07/21/20 1225 by Joseph Reyes MD Incision 07/21/20; 1118; neck ; horizontal; 10/31/21 (LDA cleanup utility RA#[id number]); 1715 (LDA cleanup utility RA#[id number]) 07/21/20 1118 by Tish Crabtree RN 10/31/21 1715 by Jono Coleman documented in this encounter Social History Tobacco Use Types Packs/Day Years [...] on file documented as of this encounter OR Notes * Anesthesia Postprocedure Evaluation - Joseph Reyes MD - 07/21/2020 6:14 PM EDT Department of Anesthesiology Post-procedure Note Patient: Chloe Quinones Procedure Summary Date: 07/21/20 Room / Location: [address] Anesthesia Start: 1053 Anesthesia Stop: 1233 Procedure: EXCISION THYROGLOSSAL DUCT CYST (WRVU 6.16) (N/A Neck) Diagnosis: Thyroglossal duct cyst (thyroglossal duct cyst) Surgeons: Judy Esquivel MD Responsible Provider: Joseph Reyes MD Anesthesia Type: general ASA Status: 2 All Anesthesia Providers: Anesthesiologist: Joseph Reyes MD COLORS CUSTODIAN: Padmini Ramirez CRNA Vitals Value Taken Time BP 107/66 07/21/20 1315 Temp 36.1 ??C (97 ??F) 07/21/20 1232 Pulse 67 07/21/20 1315 Resp 18 07/21/20 1315 SpO2 95 % 07/21/20 1315 Pain Level 2 07/21/20 1315 Patient Location: PACU/[facility] Level of Consciousness: Awake and Alert Pain Management: Satisfactory Analgesia PONV: None Cardiovascular Status: At Baseline and Hemodynamically Stable Respiratory Status: At Baseline and Room Air Postoperative Fluid Status: Intravascular EUvolemia Possible Anesthetic Complications: NONE apparent at time of evaluation Final Primary Anesthesia Type: General (The anesthetic type performed was the same as planned.) Comments: Joseph Reyes MD * Anesthesia Preprocedure Evaluation - Joseph Reyes MD - 07/21/2020 8:48 AM EDT Pre-Anesthesia Evaluation for: Chloe Quinones a 29 y.o. female. Procedure(s): EXCISION THYROGLOSSAL DUCT CYST (WRVU 6.16) Patient Active Problem List Diagnosis ??? Thyroglossal duct cyst No past medical history on file. No past surgical history on file. Social History Tobacco Use ??? Smoking status: Former Smoker Quit date: 2020 Years since quittin.3 ??? Smokeless tobacco: Never Used Substance Use Topics ??? Alcohol use: Not on file Social History Substance and Sexual Activity Drug Use Not on file No Known Allergies Medications: MAR and/or home medications have been reviewed. Physical Exam: Preprocedure Vitals Current as of 07/21/20 0848 No BP, pulse, respiration, SpO2, or temperature recorded. Height: 149.9 cm (4' 11) (06/07/20) Weight: 61.8 kg (136 lb 4.8 oz) (06/07/20) BMI: 27.53 IBW: Airway Assessment: Mallampati: II TM distance: >3 FB Neck ROM: full Cardiovascular Assessment: Rate: normal Pulmonary Assessment: unlabored breathing Dental Assessment: - normal exam Misc Assessment: IV access: Peripheral line Last Filed Perioperative Cognitive Screening None Anesthesia Plan: ASA 2 general, with a(n) intravenous induction 29 yo f smoker for thyroglossal duct cyst removal. Depression. Otherwise healthy. No issues with prior anesthetics. Good fx tolerance. No recent changes in health. Denies significant GERD. NPO today. Plan GA/LMA Region - Other Informed Consent: Anesthetic plan and risks discussed with patient. Plan discussed with COLORS CUSTODIAN. PAT Clinic Note documented in this encounter Plan of Treatment Not on file documented as of this encounter Visit Diagnoses Not on filedocumented in this encounter Administered Medications Inactive Administered Medications - up to 3 most recent administrations Medication Order MAR Action Action Date Dose Rate Site ceFAZolin (Ancef) 2 g in dextrose 5% 100 mL infusion 2 g, Intravenous, ONCE, 1 dose, On Sun07/21/20 at 1045, Administer over 30 Minutes, Indication for (Active or Suspected): Prophylaxis Given 07/21/2020 11:02 AM EDT 2 g dexamethasone (Decadron) injection Intravenous, PRN, Starting on Sun07/21/20 at 1104, Until Sun07/21/20 at 1237, Anesthesia Intra-op, Routine Given 07/21/2020 11:04 AM EDT 8 mg dexmedetomidine (Precedex) (4 mcg/mL) bolus injection (Anesthsia) Intravenous, PRN, Starting on Sun07/21/20 at 1118, Until Sun07/21/20 at 1237, Anesthesia Intra-op, Routine Given 07/21/2020 11:18 AM EDT 4 mcg fentaNYL (pf) (50 mcg/mL) multi-dose injection Intravenous, PRN, Starting on Sun07/21/20 at 1053, Until Sun07/21/20 at 1237, Anesthesia Intra-op, Routine Given 07/21/2020 11:43 AM EDT 50 mcg Given 07/21/2020 10:53 AM EDT 50 mcg ketorolac (Toradol) (30 mg/mL) injection Intravenous, PRN, Starting on Sun07/21/20 at 1157, Until Sun07/21/20 at 1237, Anesthesia Intra-op, Routine Given 07/21/2020 11:57 AM EDT 30 mg lactated ringers infusion 1,000 mL, at 100 mL/hr, Intravenous, CONTINUOUS, Starting on Sun07/21/20 at 1030, Until Sun07/21/20 at 1340, Day of Surgery (Day of Procedure) Restarted 07/21/2020 10:53 AM EDT New Bag 07/21/2020 10:30 AM EDT 1,000 mLs 100 mL/hr lidocaine (pf) (Xylocaine) (20 mg/mL) 2% injection syringe Intravenous, PRN, Starting on Sun07/21/20 at 1058, Until Sun07/21/20 at 1237, Anesthesia Intra-op, Routine Given 07/21/2020 10:58 AM EDT 40 mg midazolam (pf) (Versed) (1 mg/mL) multi-dose injection Intravenous, PRN, Starting on Sun07/21/20 at 1053, Until Sun07/21/20 at 1237, Anesthesia Intra-op, Routine Given 07/21/2020 10:56 AM EDT 1 mg Given 07/21/2020 10:53 AM EDT 1 mg ondansetron (pf) (Zofran) (2 mg/mL) injection Intravenous, PRN, Starting on Sun07/21/20 at 1106, Until Sun07/21/20 at 1237, Anesthesia Intra-op, Routine Given 07/21/2020 11:59 AM EDT 4 mg Given 07/21/2020 11:06 AM EDT 4 mg PHENYLephrine in NS (PF) (ARNULFO-SYNEPHRINE) 0.8 mg/10 mL (80 mcg/mL) multi-dose injection Syrg Intravenous, PRN, Starting on Sun07/21/20 at 1114, Until Sun07/21/20 at 1237, Anesthesia Intra-op, Routine Given 07/21/2020 11:28 AM EDT 80 mcg Given 07/21/2020 11:14 AM EDT 40 mcg propofoL (Diprivan) 10 mg/mL bolus injection (Anesthesia) Intravenous, PRN, Starting on Sun07/21/20 at 1058, Until Sun07/21/20 at 1237, Anesthesia Intra-op Given 07/21/2020 10:58 AM EDT 250 mg propofoL (Diprivan) infusion Intravenous, CONTINUOUS PRN, Starting on Sun07/21/20 at 1104, Until Sun07/21/20 at 1237, Anesthesia Intra-op, Routine New Bag 07/21/2020 11:04 AM EDT 50 mcg/kg/min 18.36 mL/hr succinylcholine (Anectine;Quelicin) (20 mg/mL) injection Intravenous, PRN, Starting on Sun07/21/20 at 1058, Until Sun07/21/20 at 1237, Anesthesia Intra-op, Routine Given 07/21/2020 10:58 AM EDT 100 mg documented in this encounter Care Teams Roll Out Manager Relationship Specialty Start Date End Date John Barba MD [address] [place] [address] PCP - General 06/24/18 documented as of this encounter
--- OUTSIDE RECORDS SUMMARY | 2023-09-20 16:51 | XMS_ITS | Encounter Summary ---
[place] [address] Care Team Providers Care Board Certified Music Therapist Name Role Phone John Barba MD Primary Care Provider [phone] Reason for Visit * Auth/Cert Specialty Diagnoses / Procedures Referred By Vera martinez Referred To Contact Diagnoses Thyroglossal duct cyst thyroglossal duct cyst Procedures PRO EXCIS THYROID DUCT CYST/SINUS EXCISION THYROGLOSSAL DUCT CYST (WRVU 6.16) Referral ID Status Reason Start Date Expiration Date Visits Re quested Visits Authorized [id number] 1 1 Encounter Details Date Type Department Care Team (Latest Contact Info) Description 07/21/2020 9:51 AM EDT - 07/21/2020 1:38 PM EDT Hospital Encounter [place]patient [place] [phone] Judy Esquivel MD [facility] [place] [address] Thyroglossal duct cyst Discharge Disposition: Home Social History Tobacco Use Types Packs/Day Years [...] was questioned regarding travel outside of the [place], fever, cough, SOB or other illness [...] again, temperature will be taken, patient and caregiver/driver manager will be given a mask to wear the entire time they are in the [facility] building. COVID test completed:07/19/20 Result of test:Pending Action taken: * Ana María Barrett RN - 07/19/2020 4:38 PM EDT During this call the patient was questioned regarding travel outside of [place], fever, cough, SOB or other illness [...] again, temperature will be taken, patient and caregiver/driver manager will be given a mask to wear [...] Esquivel MD - 07/21/2020 11:15 AM EDT [facility] Operative Note Patient Name: Chloe Quinones : [id number] MR#: [id number] Case Date: 07/21/2020 Surgeon: Surgeon(s) and Role: [...] This was injected with 1% lidocaine with [id number] epinephrine. Incision was made and subplatysmal flap [...] (07/21/2020 11:52 AM EDT) Surgical Pathology Report [id number] ? Location: [facility] The signing pathologist has (i) examined the relevant preparation(s) for the specimen(s) and (ii) rendered or confirmed the diagnosis(es). . ?Surgical Pathology DIAGNOSIS Thyroglossal duct cyst and hyoid bone, excision - - Squamous-lined cyst and adjacent hematopoietic bone, compatible with thyroglossal duct cyst and hyoid. Electronically signed by: ?Buffy Cam DO Verified: ??08/03/2020 12:15 ??Pathologist Performed at: ??-[facility] Dept. of Pathology, [place], [place] SPECIMEN(S) SUBMITTED A - Thyroglossal duct [...] submitted in 3 cassettes labeled A1-A3. ??pps [facility] 07/21/2020 11:5 2 AM EDT Judy Esquivel MD PATHOLOGY/CYTOLOGY O CELY Performing Organization Address [facility] Co de Phone Number [facility] [place] [address] * Specimen to Pathology (07/21/2020 11:52 AM EDT) AP Specimen 07/21/2020 11:5 2 AM EDT 07/21/2020 11:52 AM EDT Narrative [facility] - 07/21/2020 11:52 AM EDT Specimen requisition ordered. ??Separate Pathology report to follow Judy Esquivel MD PATHOLOGY/CYTOLOGY O CELY Performing Organization Address City/[facility]/ZIP Co de Phone Number [facility] [place] [address] * POCT urine (07/21/2020 10:00 AM EDT) POC Urine HCG Negative Negative - Negative POC Control Internal Controls Acceptable Urine 07/21/2020 10:0 0 AM EDT Judy Esquivel MD POINT OF CARE TEST O CELY documented in this encounter Visit Diagnoses Diagnosis Thyroglossal duct cyst- Primary Congenital anomalies of other endocrine glands documented [...] 10:30 AM EDT 1,000 mLs 100 mL/hr documented in this encounter Active and Recently [...] MD) documented in this encounter Care Teams Board Certified Music Therapist Relationship Specialty Start Date End Date John Barba MD [address] [place] [address] PCP - General 06/24/18 documented as of this encounter
--- OUTSIDE RECORDS SUMMARY | 2023-09-20 16:51 | XMS_ITS | Encounter Summary ---
[place] [address] Care Team Providers Care Psych Therapist Name Role Phone John Barba MD Primary Care Provider [phone] Encounter Details Date Type Department Care Team (Late st Contact Info) Description 07/16/2020 [place] [phone] Shahida Schmid V Social History Tobacco Use Types Packs/Day Years Used Date Smoking Tobacco: Former Cigarettes Q uit: 2020 Smokeless Tobacco: Never Sex and Gender Information Value Date Recorded Sex Assigned at Not on file Gender Identity Not on file Sexual Orientation Not on file documented as of this encounter Miscellaneous Notes * Telephone Encounter - Shahida Schmid V - 07/16/2020 5:24 PM EDT Telephone call placed/received to schedule covid 19 testing with patient. Ordering provider: Dr. Esquivel Testing Facility: [facility] Date of Testin/16 Time of Testing: tbd Symptoms: none. Is this the first test for Covid 19 No If no, please list date of previous test, result, and type of test (Molecular, Antigen, Antibody orunknown): Resides in congregate care setting No Employee or Household Member of Employee No Healthcare Worker No documented in this encounter Plan of Treatment Not on file documented as of this encounter Visit Diagnoses Not on filedocumented in this encounter Care Teams Psych Therapist Relationship Specialty Start Date End Date John Barba MD [address] [place] [address] PCP - General 06/24/18 documented as of this encounter
--- OUTSIDE RECORDS SUMMARY | 2023-09-20 16:51 | XMS_ITS | Encounter Summary ---
[place] [address] Care Team Providers Care Equestrian Trainer Name Role Phone John Barba MD Primary Care Provider [phone] Encounter Details Date Type Department Care Team (Late st Contact Info) Description 07/12/2020 Telephone [place] [phone] Yue Romeo Social History Tobacco Use Types Packs/Day Years Used Date Smoking Tobacco: Former Cigarettes Q uit: 2020 Smokeless Tobacco: Never Sex and Gender Information Value Date Recorded Sex Assigned at Not on file Gender Identity Not on file Sexual Orientation Not on file documented as of this encounter Miscellaneous Notes * Telephone Encounter - Yue Romeo - 07/12/2020 10:42 AM EDT [place], Patient is scheduled to have surgery on 07/21/2020 and the packet has been mailed to the verified address on file. Follow up appointment is as follows: F/u appt 1-2 weeks postop, thanks! COVID Testing: Covid 19 Team Thank you!! documented in this encounter Plan of Treatment Not on file documented as of this encounter Visit Diagnoses Not on filedocumented in this encounter Care Teams Equestrian Trainer Relationship Specialty Start Date End Date John Barba MD [address] [place] [address] PCP - General 06/24/18 documented as of this encounter
--- OUTSIDE RECORDS SUMMARY | 2023-09-20 16:51 | XMS_ITS | Encounter Summary ---
Author Organization [facility] [place] [address] Care Team Providers Care Lard Renderer Name Role Phone John Barba MD Primary Care Provider [phone] Encounter Details Date Type Department Care Team (Late st Contact Info) Description 07/28/2020 2:00 PM EDT Office [place] [phone] Judy Esquivel MD [facility] [place] [address] Thyroglossal duct cyst Social History Tobacco Use [...] - Inhaled Oxygen Concentration - - Weight 61.2 kg (135 lb) 07/28/2020 1:36 PM EDT Height 149.9 cm (4' 11) 07/28/2020 1:36 PM EDT Body Mass Index 27.27 07/28/2020 1:36 PM EDT documented in this encounter Progress Notes * Judy Esquivel MD - 07/28/2020 2:00 PM EDT [facility] Otol[facility]ology - Head and Neck Surgery Judy Esquivel MD 07/28/20 1:44 PM [place] [address] Office Patient Name: Chloe Quinones Date of : 1990 PCP: John Barba MD Chief Complaint/History of Present Illness: Chloe Quinones is a 29 y.o. year old seen in follow up. She is about 1 week status post thyroglossal duct cyst excision. She is doing okay after surgery. No real issues. She is noting seeing some mild pain and swelling over the area but this is tolerable. No fluid collections. No fevers or chills.No voice changes. Otherwise doing well. 10 point Review of Systems was normal except for pertinent positives and negatives included in the History of Present Illness. Past Medical and Surgical History Patient Active Problem List Diagnosis Code ??? Thyroglossal duct cyst Q89.2 Current Outpatient Medications on File Prior to Visit Medication Sig Dispense Refill ??? sertraline (ZOLOFT) 100 mg Tablet TAKE ONE TABLET BY MOUTH EVERY DAY No current facility-administered medications on file prior to visit. Allergies: Patient has no known allergies. Surgical History: No past surgical history on file. Family and Social History Family History: No family history on file. Social History: Lives [place] [place] [place] [address] Social History Socioeconomic History ??? Marital status: Spouse name: Not on file ??? Number of children: Not on file ??? Years of education: Not on file ??? Highest education level: Not on file Occupational History ??? Not on file Tobacco Use ??? Smoking status: Former Smoker Quit date: 2020 Years since quittin.4 ??? Smokeless tobacco: Never Used Vaping Use ??? Vaping Use: Never used Substance and Sexual Activity ??? Alcohol use: Yes Comment: Monthlhy ??? Drug use: Never ??? Sexual activity: Not on file Other [...] Week: ??? Minutes of Exercise per Session: Physical Exam Temperature: Heart Rate: Blood Pressure: Respiratory Rate: SpO2: General: Awake, alert, and oriented to person, place and time. No acute distress Head and Face: Head is normocephalic, atraumatic. Facial resting tone symmetric. Eyes: Conjugate gaze, ocular motility intact bilaterally. PERRL. Face and sinuses are non tender. Salivary glands are soft, non tender, without palpable masses. No temporomandibular joint grinding or locking. Neck: The incision is clean dry and intact. There is expected swelling over the scar and incision without jimenez fluid collection. No overlying erythema or induration. Lymphatic: no palpable cervical lymphadenopathy. Pulmonary: Breathing comfortably. Symmetric chest expansion without use of accessory muscles or retraction. Skin: Good skin turgor, no pallor, no icterus. Extremities: No gross deformities, no peripheral edema. Labs and Imaging Significant lab values are as follows: I reviewed the following imaging studies: Procedures ASSESSMENT & RECOMMENDATIONS hCloe Quinones is a 29 y.o. status post thyroglossal duct cyst excision. She is doing well. Recommendations: 1. I will call her with the pathology results when they return. In the meantime wound care instructions including wearing sunblock over the incision for the next year was advised. 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
--- OUTSIDE RECORDS SUMMARY | 2023-09-20 16:51 | XMS_ITS | Encounter Summary ---
Author Organization [facility] [place] [address] Care Team Providers Care Funeral Home Location Manager Name Role Phone John Barba MD Primary Care Provider [phone] Encounter Details Date Type Department Care Team (Late st Contact Info) Description 05/17/2020 8:40 PM EDT Ancillary Procedure Radiology at [address] [phone] John Barba MD [address] [place] [address] Social History Tobacco Use Types Packs/Day Years Used Date Smoking Tobacco: Never Assessed Sex and Gender Information Value Date Recorded Sex Assigned at Not on file Gender Identity Not on file Sexual Orientation Not on file documented as of this encounter Plan of Treatment Not on file documented as of this encounter Procedures Procedure Name Priority Date/Time Associated Diagnosis Comments FILM LIBRARY - STORAGE ONLY CT NECK STAT 05/17/2020 8:36 PM EDT documented in this encounter Results * Film Library- Storage Only CT Neck (05/17/2020 8:36 PM EDT) Narrative RAD - 05/17/2020 8:36 PM EDT This exam is auto-finalizing. It's purpose is for storage only. John Barba MD IMG FILM LIBRARY ORD ERABLES [place], [place] documented in this encounter Visit Diagnoses Not on filedocumented in this encounter Care Teams Funeral Home Location Manager Relationship Specialty Start Date End Date John Barba MD [address] [place] [address] PCP - General 06/24/18 documented as of this encounter
== END 2023-09-20 16:44 | disposition home or self-care (01) ==
LOC: NCHCN 16:43
PROVIDERS: PCP Nurse Practitioner Family; Visit Provider Nurse Practitioner Family
DX: Z12.4 Encounter for screening for malignant neoplasm of cervix (principal); Z11.51 Encounter for screening for human papillomavirus (HPV)
CPT/HCPCS: 88142; 87624